=== PATIENT | female | born 1950 | race Caucasian/White ===

== ENCOUNTER 2021-12-06 12:53 | Emergency (ER) | payer MEDICARE ==
[~2021-12-06] VITALS: Ht 175.3 cm; Wt 99.0 kg
[2021-12-06] MEDS ORDERED: IV NORMAL SALINE 1,000ML 1,000 ML IV ONE (13:30)
[2021-12-06] MEDS ORDERED: IOHEXOL 300 MG/ML 75 ML VIAL. IV ONE (13:30)
--- NOTE | 2021-12-06 13:35 | PHYS DOC ---
Past History Past Surgical History: Knee Replacement Alcohol Use: None General Adult EDM: Chief Complaint: VAGINAL BLEEDING HPI: HPI: 71-year-old female presents with vaginal bleeding. The patient started to have some mild discomfort with urinating 2 days ago. She was planning to have her urine evaluated for UTI today. She noticed that she was having bleeding this morning after she woke up. The bleeding was painless and she continues to have no abdominal pain. She went to the urgent care who took a sample and said it was all blood. They advised her to come the emergency room. Patient has no history of hematuria or vaginal bleeding. She has not had a Pap smear in nearly 10 years. No history of HPV or other complicating factors. She has had no abdominal surgeries. Review of Systems: Review of Systems: Constitutional: Denies fever or chills Eyes: Denies change in visual acuity HENT: Denies nasal congestion or sore throat Respiratory: Denies cough or shortness of breath Cardiovascular: Denies chest pain or edema GI: Denies abdominal pain, nausea, vomiting, bloody stools or diarrhea : Vaginal bleeding Musculoskeletal: Denies back pain or joint pain Integument: Denies rash Neurologic: Denies headache, focal weakness or sensory changes Endocrine: Denies polyuria or polydipsia Lymphatic: Denies swollen glands Psychiatric: Denies depression or anxiety Current Medications: Current Meds: Current Medications Medications (Trade) Dose Ordered Sig/Lesley Start Time Stop Time Status Last Admin Dose Admin Iohexol (Omnipaque 300 Mg/ml) 75 ml 1X ONCE 12/06/21 13:30 12/06/21 13:31 DC Sodium Chloride 1,000 ml @ 1,000 mls/hr 1X ONCE 12/06/21 13:30 12/06/21 14:29 Allergies: Allergies: Allergies Coded Allergies Type Severity Reaction Last Updated Verified alendronate sodium Allergy Unknown 12/06/21 Yes Physical Exam: PE: Constitutional: Well developed, well nourished, obese, no acute distress, non- toxic appearance. [] HENT: Normocephalic, atraumatic, bilateral external ears normal, oropharynx moist, no oral exudates, nose normal. [] Eyes: PERRLA, EOMI, conjunctiva normal, no discharge. [] Neck: Normal range of motion, no tenderness, supple, no stridor. [] Cardiovascular: Heart rate regular rhythm, no murmur [] Lungs & Thorax: Bilateral breath sounds clear to auscultation [] Abdomen: Bowel sounds normal, soft, no tenderness, no masses, no pulsatile masses. [] Skin: Warm, dry, no erythema, no rash. [] Back: No tenderness, no CVA tenderness. [] Extremities: No tenderness, no cyanosis, no clubbing, ROM intact, no edema. [] Neurologic: Alert and oriented X 3, normal motor function, normal sensory function, no focal deficits noted. [] Psychologic: Affect normal, judgement normal, mood anxious. : Normal external exam, no significant pain with speculum exam, no obvious vaginal or cervical bleeding. Mild erythema of anterior cervix. External rectal exam normal. [] Current Patient Data: Vital Signs: Vital Signs Date Time Temp Pulse Resp B/P (MAP) Pulse Ox O2 Delivery O2 Flow Rate FiO2 12/06/21 13:06 98.3 103 16 147/96 (113) 97 Room Air EKG: EKG: [] Radiology/Procedures: Radiology/Procedures: [] Impressions: CT ABDOMEN+PELVIS W History: Vaginal bleeding Comparison: None. Technique: CT abdomen and pelvis with intravenous contrast. Findings: The lung bases demonstrate mild atelectatic change. The liver, gallbladder, pancreas, spleen, adrenal glands and kidneys are unremarkable. Normal bladder. Unremarkable uterus and adnexa. No endometrial thickening or masses identified within limitations of exam. The stomach and small bowel are within normal limits. Mild descending colonic diverticulosis. Prominent rectal stool burden. No free fluid or free air. No enlarged adenopathy. The vasculature is within normal limits. Soft tissues are unremarkable. Degenerative changes in the lumbar spine consistent with patient's age. Impression: 1. No acute findings in the abdomen and pelvis. Recommend pelvic ultrasound for further evaluation of vaginal bleeding. 2. Mild descending colonic diverticulosis and prominent rectal stool burden. No evidence of colitis/diverticulitis. ------ Exposure: One or more of the following individualized dose reduction techniques were utilized for this examination: 1. Automated exposure control 2. Adjustment of the mA and/or kV according to patient size 3. Use of iterative reconstruction technique. Electronically signed by: Roberto Hill MD (12/06/2021 2:33 PM) [id number] DICTATED AND SIGNED BY: ROBERTO HILL MD DATE: 12/06/21 1427 CC: KHUSHBU SANTOS DO; AILYN GUERRERO MD ~MTH0 0 US PELVIS COMPLETE Clinical Indication: Reason: PMB, vaginal bleeding. Comparison: CT abdomen and pelvis with contrast, earlier same day. TECHNIQUE: Real-time ultrasound imaging of the pelvis using transabdominal and transvaginal window is performed. Findings: Urinary bladder is unremarkable. The uterus measures 5.1 x 5.1 x 2.3 cm. No focal abnormality is seen. Endometrial stripe is normal measuring 2 mm. The right and left ovary are not identified. This may be due to overlying bowel gas. No focal abnormality of the adnexae. No pelvic free fluid is seen. IMPRESSION: 1. The uterus and endometrial stripe are normal. 2. The ovaries are not identified. Electronically signed by: Milton Ibarra MD (12/06/2021 3:29 PM) [facility] DICTATED AND SIGNED BY: MILTON IBARRA MD DATE: 12/06/21 1526 CC: KHUSHBU SANTOS DO; AILYN GUERRERO MD ~MTH0 0 Heart Score: C/O Chest Pain: N/A Risk Factors: Risk Factors: DM, Current or recent (<one month) smoker, HTN, HLP, family history of CAD, obesity. Risk Scores: Score 0 - 3: 2.5% MACE over next 6 weeks - Discharge Home Score 4 - 6: 20.3% MACE over next 6 weeks - Admit for Clinical Observation Score 7 - 10: 72.7% MACE over next 6 weeks - Early Invasive Strategies Course & Med Decision Making: Course & Med Decision Making Pertinent Labs and Imaging studies reviewed. (See chart for details) The patient CT the abdomen pelvis is negative for acute findings. Ultrasound was recommended. Pelvic ultrasound does not show any acute findings either. No significant abnormalities found. Vaginal exam was unremarkable. Labs are unremarkable. Urine shows blood but no infection. This could be a spontaneous bleed in her bladder. It will likely be self resolving. I have advised patient to monitor her urine and have it retested in 1 to 2 weeks. If she still has blood in her urine she should seek urology consult. She is stable for discharge at this time. [] Dragon Disclaimer: Dragon Disclaimer: This electronic medical record was generated, in whole or in part, using a voice recognition dictation system. Departure Departure: Impression: Primary Impression: Hematuria Disposition: HOME / SELF CARE / HOMELESS Condition: STABLE Referrals: AILYN GUERRERO MD (PCP) Patient Instructions: Hematuria, Adult KHUSHBU SANTOS DO Dec 06, 2021 13:35
[2021-12-06 14:01] LABS: BASO % 1 % (0-3); EOS # 0.1 x10^3/uL (0.0-0.7); EOS % 1 % (0-3); HEMATOCRIT 46.1 % (36.0-47.0); HEMOGLOBIN 15.4 g/dL (12.0-15.5); LYMPH # 1.2 x10^3/uL (1.0-4.8); LYMPH % 19 % (24-48); MEAN CORPUSCULAR HEMOGLOBIN 29 pg (25-35); MEAN CORPUSCULAR HGB CONC 33 g/dL (31-37); MEAN CORPUSCULAR VOLUME 88 fL (79-100); MONO # 0.4 x10^3/uL (0.0-1.1); MONO % 6 % (0-9); NEUT # 4.7 x10^3uL (1.8-7.7); NEUT % 73 % (31-73); PLATELET COUNT 170 x10^3/uL (140-400); RED BLOOD COUNT 5.23 x10^6/uL (3.50-5.40); WHITE BLOOD COUNT 6.4 x10^3/uL (4.0-11.0)
[2021-12-06 14:06] LABS: CALCIUM 9.5 mg/dL (8.5-10.1); CREATININE 0.7 mg/dL (0.6-1.0); GFR 82.5; POTASSIUM 4.3 mmol/L (3.5-5.1)
[2021-12-06 14:13] LABS: ALBUMIN 4.1 g/dL (3.4-5.0); ALBUMIN/GLOBULIN RATIO 1.1 (1.0-1.7); TOTAL BILIRUBIN 0.7 mg/dL (0.2-1.0)
--- NOTE | 2021-12-06 14:35 | RAD ---
CT ABDOMEN+PELVIS W History: Vaginal bleeding Comparison: None. Technique: CT abdomen and pelvis with intravenous contrast. Findings: The lung bases demonstrate mild atelectatic change. The liver, gallbladder, pancreas, spleen, adrenal glands and kidneys are unremarkable. Normal bladder. Unremarkable uterus and adnexa. No endometrial thickening or masses identified within limitations of exam. The stomach and small bowel are within normal limits. Mild descending colonic diverticulosis. Promine nt rectal stool burden. No free fluid or free air. No enlarged adenopathy. The vasculature is within normal limits. Soft tiss ues are unremarkable. Degenerative changes in the lumbar spine consistent with patient's age. Impression: 1. No acute findings in the abdomen and pelvis. Recommend pelvic ultrasound for further evaluation o f vaginal bleeding. 2. Mild descending colonic diverticulosis and prominent rectal stool burden. No evidence of colitis/ diverticulitis. ------ Exposure: One or more of the following individualized dose reduction techniques were utilized for thi s examination: 1. Automated exposure control 2. Adjustment of the mA and/or kV according to patient size 3. Use of iterative reconstruction technique. Electronically signed by: Roberto Luciano MD (12/06/2021 2:33 PM) [id number]
--- NOTE | 2021-12-06 15:31 | RAD ---
US PELVIS COMPLETE Clinical Indication: Reason: PMB, vaginal bleeding. Comparison: CT abdomen and pelvis with contrast, earlier same day. TECHNIQUE: Real-time ultrasound imaging of the pelvis using transabdominal and transvaginal window is performed. Findings: Urinary bladder is unremarkable. The uterus measures 5.1 x 5.1 x 2.3 cm. No focal abnormality is seen . Endometrial stripe is normal measuring 2 mm. The right and left ovary are not identified. This may be due to overlying bowel gas. No focal abnorma lity of the adnexae. No pelvic free fluid is seen. IMPRESSION: 1. The uterus and endometrial stripe are normal. 2. The ovaries are not identified. Electronically signed by: Milton Ibarra MD (12/06/2021 3:29 PM) [facility]
[2021-12-06 15:47] LABS: BACTERIA,URINE 0 /HPF (0-FEW); CLARITY,URINE CLOUDY; COLOR,URINE PINK; GLUCOSE,URINE NEG (NEG); NITRITE,URINE NEG (NEG); RBC,URINE >40 /HPF (0-2); UROBILINOGEN,URINE 0.2 mg/dL (0.2 mg/dL)
[2021-12-06 16:21] VITALS: BP 136/82
== END 2021-12-06 16:20 | disposition home or self-care (01) ==
LOC: ER 12:53
DX: R31.9 Hematuria, unspecified (principal); N93.8 Other specified abnormal uterine and vaginal bleeding; Z88.8 Allergy status to other drugs, medicaments and biological substances
CPT/HCPCS: 36415; 74177; 76856; 80053; 81001; 85025; 86850; 86900; 86901; 87077; 87086; 87186; 96360; 96361; 99285; J7030; Q9967